=== PATIENT | male | born 1990 | race African-American/Black ===

== ENCOUNTER 2022-10-14 11:28 | Emergency (ER) | payer SELFPAY ==
[2022-10-14 11:41] VITALS: BP 158/110; PULSE 87; RESP 16; TEMP 36.6; O2SAT 99
--- NOTE | 2022-10-14 12:00 | ED.GENADULT ---
HPI - General Adult General Chief complaint: Headache Stated complaint: headaches Time Seen by Provider: 10/14/22 12:00 Source: patient, RN notes reviewed and old records reviewed Mode of arrival: ambulatory Limitations: no limitations History of Present Illness HPI narrative: 32-year-old male presents to the [facility] with complaints of frontal headaches every night and when he gets home from work for several weeks. Patient states is worse when he lays down. Denies any pain currently. No fevers. Denies any chest pain or shortness of breath. Denies any blurry vision or change in vision. Denies any numbness or tingling in extremities. Has taken Tylenol. Does not have a primary care Patient states he is also concerned for his blood pressure Requesting a work note Related Data Allergies Allergy/AdvReac Type Severity Reaction Status Date / Time No Known Allergies Allergy Verified 10/14/22 12:01 Review of Systems Review of Systems: All systems reviewed & are unremarkable except as noted in HPI and below Constitutional: Constitutional: Reports no additional constitutional complaints Eyes: Eyes: Reports no additional eye complaints ENT: Reports system reviewed and no additional complaints, except as documented Cardiovascular: Cardiovascular: Reports no additional cardiovascular complaints, Denies chest pain and Denies dyspnea Respiratory: Respiratory: Reports no additional respiratory complaints, Denies chest congestion, Denies cough and Denies dyspnea Gastrointestinal: Gastrointestinal: Reports no additional gastrointestinal complaints, Denies abdominal pain, Denies nausea and Denies vomiting Musculoskeletal: Musculoskeletal: Reports no additional musculoskeletal complaints Integumentary/Breasts: Skin/Breast: Reports system reviewed and no additional complaints, except as docu Neurologic: Reports as per HPI, Reports headache(s) (Frontal), Denies focal weakness, Denies numbness and Denies weakness Psychiatric: Psychiatric: Reports no additional psychiatric complaints Allergic/Immunologic: Allergic/Immunologic: Reports no additional allergic/immunologic complaints PMFSH Comments At the time of my signature, I reviewed and agree with the nursing past medical, surgical, social, and family history. There is no relevant family history pertinent to the patient complaint. Exam Const: General: cooperative, healthy appearing, comfortable, no acute distress, well developed, alert and well nourished Nutritional Appearance: well nourished Orientation/consciousness: patient oriented x3 Limitations: no limitations HENMT: Head: normal to inspection Ears: hearing grossly normal bilaterally and external ears normal Face/Nose/Sinus: Normal external nose present, Normal nares present, Normal nasal mucous membranes and turbinates present and normal facial exam Face and sinus: normal facial exam Mouth: Yes Normal oral and palatal mucosa present, Yes lip normal and Yes moist mucous membranes Throat: posterior oropharynx normal and uvula midline Eyes: General: appearance normal, both eyes and all related structures Alignment and Position: alignment normal Periorbital: periorbital findings normal Conjunctivae: conjunctivae normal Pupils: Equal, round and reactive pupils present EOM: EOMs intact bilaterally Neck: Neck: normal visual inspection, full ROM, no lymphadenopathy and no meningeal signs Chest: Chest palpation & inspection: normal inspection of the chest Resp: Effort & Inspection: normal respiratory effort and able to speak in complete sentences Auscultation: clear to auscultation bilaterally, no crackles, no rales, no rhonchi and no wheezes Cardio: Rate: regular rate Rhythm: regular rhythm Back/Spine/Pelvis: Cervical Spine: cervical ROM normal Thoracic/Lumbar Spine: No thoracic spinal tenderness Skin: General skin exam: normal color and no rashes or lesions noted Lesions: no lesions Rashes: no rashes Wounds: no
== END 2022-10-14 12:13 | disposition home or self-care (01) ==
PROVIDERS: Emergency Provider Nurse Practitioner
DX: R51.9 Headache, unspecified (principal)
CPT/HCPCS: 99211; G0463

== ENCOUNTER 2022-10-18 11:20 | Emergency (ER) | payer SELFPAY ==
[2022-10-18 11:22] VITALS: BP 164/119; PULSE 85; RESP 17; O2SAT 99
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
[2022-10-18] MEDS: metroNIDAZOLE 250 MG TABLET 2000 MG PO (13:02)
[2022-10-18] MEDS: DOXYCYCLINE HYCLATE 100 MG TABLET PO (13:02)
[2022-10-18] MEDS: LIDOCAINE HCL 1% PF 30 ML VIAL (13:02)
[2022-10-18] MEDS: cefTRIAXone 1 GM VIAL 0.5 GM IM (13:02)
[2022-10-18 13:58] LABS: Appearance Urine Cloudy (Clear); Bilirubin Urine Negative (Negative); Blood Urine Trace-intact (Negative); Color Urine Yellow (Yellow); Glucose Urine UA Negative (Negative); Ketones Urine Negative (Negative); Leukocyte Esterase Ur 2+ LEU/UL (Negative); Nitrate Urine Negative (Negative); Protein Urine Trace mg/dL (Negative); Urobilinogen Urine 0.2 mg/dL (<2.0); pH Urine 7.5 (5.0-9.0)
[2022-10-18 14:24] LABS: Bacteria Urine Trace /hpf; Mucus Urine Rare /lpf; RBC Urine 21-50 /hpf (0-2); Squamous Epithelial Cell Urine Rare /hpf (Few); WBC Clumps Urine Present /HPF; WBC Urine >75 /hpf
[2022-10-18 14:31] LABS: Add Urine Microscopic? YES
== END 2022-10-18 13:38 | disposition home or self-care (01) ==
PROVIDERS: Emergency Provider Emergency Medicine
DX: R51.9 Headache, unspecified (principal); I10 Essential (primary) hypertension; Z20.2 Contact with and (suspected) exposure to infections with a predominantly sexual mode of transmission
CPT/HCPCS: 81001; 87086; 87491; 87591; 96372; 99283; A9270; J0696

== ENCOUNTER 2023-04-06 11:11 | Emergency (ER) | payer SELFPAY ==
[2023-04-06 11:20] VITALS: BP 161/121; PULSE 80; RESP 16; TEMP 36.6; O2SAT 100
--- NOTE | 2023-04-06 11:32 | ED.DENTAL ---
HPI - Dental/Oral General Chief complaint: Dental/Oral Stated complaint: Dental Pain Time Seen by Provider: 04/06/23 11:23 Source: patient and RN notes reviewed Mode of arrival: ambulatory Limitations: no limitations History of Present Illness HPI Narrative: Patient presents today complaining of bilateral lower dental pain times approximately 10 days. States he has to bed teeth that need to be extracted. Reports he does have a an appointment with a dentist, but states he needs to be on antibiotics prior to his appointment. Currently rates his pain 08/26 and has been taking ibuprofen with mild relief. Denies fever, shortness breath, or difficulty swallowing. Related Data Allergies Allergy/AdvReac Type Severity Reaction Status Date / Time No Known Allergies Allergy Verified 04/06/23 11:17 Review of Systems Review of Systems: CONSTITUTIONAL: Denies body aches, fever, chills, or sweats. EYES: Denies visual changes, redness, or discharge. ENT: Denies rhinorrhea, congestion, sore throat, or otalgia.+ tooth pain CARDIOVASCULAR: Denies chest pain, palpitations, or edema. RESPIRATORY: Denies cough or dyspnea. GASTROINTESTINAL: Denies abdominal pain, nausea, vomiting, or diarrhea. GENITOURINARY: Denies dysuria or hematuria. SKIN: Denies rash, itching, or wounds. MUSCULOSKELETAL: Denies back pain, joint pain, or myalgia. NEUROLOGIC: Denies headache, numbness, tingling, or weakness. PSYCH: Denies depression or anxiety. PMFSH Comments At time of signature, I have reviewed and agree with nursing past medical, surgical, social and family history unless otherwise noted. Please see nursing chart for further information. There is no relevant family history pertinent to the presenting complaint Exam Narrative: GENERAL: Well-appearing, well-nourished, and in no acute distress. HEAD: Normocephalic, atraumatic. EYES: EOMI. No redness or drainage. Conjunctivae normal. ENT: Mucous membranes pink and moist. Tooth number 31 and tooth 19 are brown in color and grossly decayed. Patient has gold teeth on the top. No facial swelling noted. NECK: Normal AROM. CHEST: No respiratory distress. EXTREMITIES: Normal range of motion. No edema. SKIN: Warm, dry, no rash. Capillary refill normal. Normal skin turgor. NEURO: No focal deficits. Alert and oriented x3. Gait steady. PSYCH: Normal affect. No signs of depression or anxiety. Course Course Level of Care: Express Care Visit Vital Signs Vital signs: Vital Signs Temperature 98 F 04/06/23 11:20 Pulse Rate 80 04/06/23 11:20 Respiratory Rate 16 04/06/23 11:20 Blood Pressure 161/121 H 04/06/23 11:20 Pulse Oximetry 100 04/06/23 11:20 Oxygen Delivery Room Air 04/06/23 11:20 Temperature 98 F 04/06/23 11:20 Pulse Rate 80 04/06/23 11:20 Respiratory Rate 16 04/06/23 11:20 Blood Pressure 161/121 H 04/06/23 11:20 Pulse Oximetry 100 04/06/23 11:20 Oxygen Delivery Room Air 04/06/23 11:20 BP recheck 162/104. Reviewed MDM - Dental/Oral MDM Narrative Medical decision making narrative: Prescription for amoxicillin sent to pharmacy. Anticipatory guidance given. Differential Diagnosis Differential diagnosis: Likely gingival abscess, dental caries, toothache, dental abscess and fracture of tooth Critical Care Time Critical Care Time Critical Care Time: No Discharge Plan Discharge Clinical Impression: Infected dental caries Patient Disposition: Home, Self-Care Condition: Stable Additional Instructions: Please take the amoxicillin as prescribed until gone. Continue ibuprofen for pain. Follow-up with your dentist as soon as possible for further evaluation. Your blood pressure was elevated above 120/80 today at Urgent Care. This puts you above the threshold for follow up. Please schedule a followup visit with your personal physician as soon as possible, for further evaluation and treatment. Even blood pressure exceeding 120/80
[2023-04-06 11:36] VITALS: BP 162/104
== END 2023-04-06 11:38 | disposition home or self-care (01) ==
PROVIDERS: Emergency Provider Nurse Practitioner
DX: K02.9 Dental caries, unspecified (principal)
CPT/HCPCS: 99213; G0463

== ENCOUNTER 2024-03-01 10:42 | Emergency (ER) | payer SELFPAY ==
[2024-03-01 10:47] VITALS: BP 190/148; PULSE 97; RESP 16; TEMP 36.7; O2SAT 100
[2024-03-01 11:36] LABS: Appearance Urine Cloudy (Clear); Bacteria Urine None Seen /hpf; Bilirubin Urine Negative (Negative); Blood Urine 2+ (Negative); Color Urine Yellow (Yellow); Glucose Urine UA Negative (Negative); Ketones Urine Negative (Negative); Leukocyte Esterase Ur 3+ LEU/UL (Negative); Nitrate Urine Negative (Negative); Non Pathogenic Casts 0-2; Protein Urine 1+ mg/dL (Negative); RBC Urine 21-50 /hpf (0-2); Specific Grav Ur 1.023 (1.001-1.035); Squamous Epithelial Cell Urine None Seen /hpf (Few); WBC Urine >100 /hpf (0-3)
[2024-03-01 11:38] LABS: Add Urine Microscopic? YES
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
[2024-03-01 13:00] LABS: Chlamydia trachomatis DETECTED (NOT DETECTE); Neisseria gonorrhoeae PCR DETECTED (NOT DETECTE)
[2024-03-01] MEDS: cefTRIAXone 1 GM VIAL 0.5 GM IM (13:28)
== END 2024-03-01 13:32 | disposition home or self-care (01) ==
PROVIDERS: Emergency Provider Emergency Medicine
DX: A54.9 Gonococcal infection, unspecified (principal); A74.9 Chlamydial infection, unspecified; I10 Essential (primary) hypertension
CPT/HCPCS: 81001; 87086; 87491; 87591; 96372; 99283; J0696

== ENCOUNTER 2024-03-20 01:32 | Emergency (ER) | payer SELFPAY ==
[2024-03-20 01:39] VITALS: BP 153/104; PULSE 105; RESP 15; TEMP 36.7; O2SAT 98
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
[2024-03-20] MEDS: TETANUS,DIPHTHERIA,AC PERTUSSIS ADULT (0.5 ML) BOOSTRIX IM (02:38)
[2024-03-20] MEDS: ACETAMINOPHEN 500 MG TABLET 1000 MG PO (02:38)
--- NOTE | 2024-03-20 03:39 | PC.NURSE ---
Pt walked out prior to receiving dc instructions.
== END 2024-03-20 03:40 | disposition home or self-care (01) ==
PROVIDERS: Emergency Provider Student in an Organized Health Care Education/Training Program; PCP Emergency Medicine
DX: S61.512A Laceration without foreign body of left wrist, initial encounter (principal); Z23 Encounter for immunization; I10 Essential (primary) hypertension; W26.0XXA Contact with knife, initial encounter
CPT/HCPCS: 12002; 90471; 90715; 99283; A9270